=== PATIENT | female | born 1965 | race Caucasian/White ===

== ENCOUNTER 2020-03-07 05:55 | Observation (INO) ==
--- NOTE | 2020-02-22 11:43 | PAT Medication Instructions ---
Medication Instructions Date of Service February 22, 2020 Home Medications Potassium 99 mg PO QAM [Tylenol Arthritis Pain] 1,300 mg PO Q12H PRN cholecalciferol [Vitamin D3] 25 mcg PO QAM [Glucosamine Chondroitin] 1 cap PO QAM lisinopril 10 mg PO QAM multivitamin 1 tab PO QAM paroxetine HCl 25 mg PO QAM vitamin E 400 unit PO QAM STOP taking 2 weeks before surgery If surgery is within 2 weeks, stop taking as soon as possible. [Glucosamine Chondroitin] 1 cap PO QAM vitamin E 400 unit PO QAM DO NOT take the morning of surgery cholecalciferol [Vitamin D3] 25 mcg PO QAM lisinopril 10 mg PO QAM multivitamin 1 tab PO QAM Take morning of surgery With a small sip of water, OTHERWISE NOTHING TO EAT OR DRINK AFTER MIDNIGHT: [Tylenol Arthritis Pain] 1,300 mg PO Q12H PRN (if needed, may be taken up to four hours before surgery) paroxetine HCl 25 mg PO QAM Other Notes If you have any questions please call us at [phone] or [phone] or [phone] or [phone]
--- NOTE | 2020-02-23 11:06 | Anesthesiology Consultation ---
Date of Service February 23, 2020 Assessment & Plan (1) Encounter for pre-operative examination: COVID Status: As of 02/22 assessment, patient denies travel to endemic area, known exposure/sick contacts, or symptoms of COVID19. Patient instructed that they and their household members must follow strict social distancing guidelines, wear a mask in public and avoid travel for 14 days prior to surgery. Preoperative COVID19 testing to be completed prior to surgery per surgeon's arra ngements. Patient made aware to self-isolate as much as possible between COVID testing and surgery. *H/o PONV* HCG AM DOS Chart Review Chart Review: Acceptable Risk for Surgery and Patient seen in Pre Admission Testing Teaching & Discussion Instructed NPO after midnight before surgery, except medications with 15 cc of water. Medication instructions provided according to the PAT guidelines. History Surgery Operation Date: 03/07/20 11:55 Proposed Procedures p C6-C7 Anterior Cervical Discectomy Fusion - Paolo Barrios DO Height/Weight Height: 5 ft 6 in Weight: 89.5 kg Allergies Allergy/AdvReac Type Severity Reaction Status Date / Time adhesive AdvReac Unknown BLISTERS,SOME Verified 02/16/20 10:45 BANDAIDS celecoxib [From Celebrex] AdvReac Unknown FLUID Verified 02/16/20 10:44 RETENTION oxaprozin [From Daypro] AdvReac Unknown FLUID Verified 02/16/20 10:45 RETENTION Medications Home Medications Medication Instructions Recorded Confirmed Last Taken Potassium 99 mg PO QAM 02/16/20 02/16/20 Unknown acetaminophen [Tylenol Arthritis 1,300 mg PO Q12H PRN 02/16/20 02/16/20 Unknown Pain] cholecalciferol (vitamin D3) 25 mcg PO QAM 02/16/20 02/16/20 Unknown [Vitamin D3] glucos sul [id number]-Mn 1 cap PO QAM 02/16/20 02/16/20 Unknown [Glucosamine Chondroitin] lisinopril 10 mg PO QAM 02/16/20 02/16/20 Unknown multivitamin 1 tab PO QAM 02/16/20 02/16/20 Unknown paroxetine HCl 25 mg PO QAM 02/16/20 02/16/20 Unknown vitamin E 400 unit PO QAM 02/16/20 02/16/20 Unknown Lactobacillus acidophilus 1.5 mg PO QAM 02/23/20 02/23/20 Unknown [Probiotic Acidophilus] Past Medical History Medical History Anxiety Chronic back pain FROM NECK TO ARMS Hypertension Thyroiditis NO MEDS-F/U DR YECENIA CONSTANTINO [facility] Exercise / Class Metabolic Activity II 4-5 Yardwork/Stairs/Walk up hill Past Family History Family History Mother Family history of diabetes mellitus Past Surgical History Surgical History H/O foot surgery LEFT/RIGHT History of carpal tunnel release RIGHT History of colonoscopy History of oophorectomy LEFT-DERMOID History of surgery on arm RIGHT RADIAL TUNNEL History of surgery on arm RIGHT CUBITAL TUNNEL X 2 History of tonsillectomy Nausea and vomiting after administration of anesthetic agent Past Anesthesia History No Hx of Anesthesia Complications and No Family Hx of Anesthesia Complications History of PONV Adult History of PONV (18 and older): With most recent 2 cubital tunnel surgeries had no PONV, but did have with radial tunnel. No Hx of Motion Sickness and History of PONV STOP BANG Total 2 Social History Smoking Status: Never smoker Do You Dip or Chew Tobacco: No Hx Alcohol Use: Yes Alcohol type: wine alcohol intake frequency: a few times a month Hx Substance Use: No Review of Systems Pt denies any recent chest pain, shortness of breath, palpitations, cough, fever, URI, or uncontrolled acid reflux. Physical Exam Vital Signs BP: 122/81 P: 68bpm SPO2: 95% RA T: 98.4 F R: 12 ENMT Mouth: + dental restorations (R side rear molar upper and lower implants (2)); no chipped teeth and no loose teeth Thyromental Distance: > or= 3.5 Finger Breadths (3.5) Mallampati Class: I Neck normal visual inspection; neck extension not limited Respiratory normal respiratory effort Auscultation: lungs clear to auscultation bilaterally Cardiovascular Rate/Rhythm: regular rate and regular rhythm Heart Sounds: no murmur Extremities: no edema Testing Laboratory Results 02/23/20 11:14 02/23/20 11:14 PT 11.6 Seconds (9.0-12.0) 02/23/20 11:14 INR 1.1 (0.9-1.1) 02/23/20 11:14 APTT 26.7 Seconds (21.0-31.0) 02/23/20 11:14 Urine Color Yellow 02/23/20 11:14 Urine Appearance Clear (Clear) 02/23/20 11:14 Urine pH 8.0 (4.5-7.5) H 02/23/20 11:14 Ur Specific [place] 1.010 (1.000-1.030) 02/23/20 11:14 Urine Protein Negative (Negative) 02/23/20 11:14 Urine Glucose (UA) Negative (Negative) 02/23/20 11:14 Urine Ketones Negative (Negative) 02/23/20 11:14 Urine Nitrite Negative (Negative) 02/23/20 11:14 Ur Leukocyte Esterase 2+ (Negative) H 02/23/20 11:14 Urine WBC (Auto) 1-5 /hpf (0-5) 02/23/20 11:14 Urine RBC (Auto) 0-4 /hpf (0-4) 02/23/20 11:14 U Hyaline Cast (Auto) 1-5 /lpf (0-5) 02/23/20 11:14 U Epithel Cells (Auto) >30 /lpf (0-5) H 02/23/20 11:14 Urine Bacteria (Auto) 1+ (Negative) H 02/23/20 11:14 Blood Type A Negative 02/23/20 11:14 Antibody Screen NEGATIVE 02/23/20 11:14 Electrocardiogram Date: 02/23/20 Findings: + NSR @ (66bpm) *unconfirmed Chest X-Ray Date: 02/23/20 Findings: + NAD
--- NOTE | 2020-02-23 11:46 | XRay Report ---
XR chest Pre-admission PA/Lat CLINICAL HISTORY: Preoperative evaluation. COMPARISON STUDY: No previous studies for comparison. FINDINGS: Lung volumes are normal. Lungs are clear. There is no pneumothorax or pleural effusion. Car diac size is normal. Mediastinal contours are normal. There is no evidence for pulmonary edema. Incid ental note is made of cholecystectomy clips. IMPRESSION: No acute cardiopulmonary findings. ACT 112: Negative or not required by law. Electronically signed by: Adam Gottlieb M.D. 02/23/2020 11:44 AM
[2020-02-23 12:33] LABS: Basophils # (auto) 0.03 K/uL (0-0.2); Basophils % (auto) 0.8 %; Eosinophils # (auto) 0.09 K/uL (0-0.5); Eosinophils % (auto) 2.4 %; Hematocrit (blood only) 38.9 % (37-47); Hemoglobin 13.3 g/dL (12.0-16.0); Lymphocytes # (auto) 1.53 K/uL (1.2-3.4); Lymphocytes % (auto) 40.2 %; Mean Corpuscular Hgb Conc 34.2 g/dL (32-36); Mean Corpuscular Volume 87.8 fL (80-100); Mean Platelet Volume 9.5 fL (7.4-10.4); Monocytes # (auto) 0.38 K/uL (0.11-0.59); Neutrophils # (auto) 1.78 K/uL (1.4-6.5); Neutrophils % (auto) 46.6 %; Platelet Count 218 K/uL (130-400); RDW Coefficient of Variation 13.1 % (11.5-14.5); Red Blood Count 4.43 M/uL (4.2-5.4); White Blood Count 3.81 K/uL (4.8-10.8)
[2020-02-23 12:39] LABS: BUN Creatinine Ratio 16.2 (10-20); Calcium 9.4 mg/dl (8.5-10.1); Creatinine Clr Calc Pharmacy 100.4 ml/min; Potassium 4.2 mmol/L (3.5-5.1)
[2020-02-23 12:47] LABS: Appearance Urine Clear (Clear); Bacteria Urine Automated 1+ (Negative); Bilirubin Urine Negative (Negative); Blood Urine Negative (Negative); Color Urine Yellow; Epithelial Cell Urine Auto >30 /lpf (0-5); Glucose Urine UA Negative (Negative); Ketones Urine Negative (Negative); Leukocyte Esterase Urine 2+ (Negative); Nitrite Urine Negative (Negative); Protein Urine Negative (Negative); RBC Urine Automated 0-4 /hpf (0-4); Urobilinogen Urine Negative (Negative)
[2020-02-23 12:55] LABS: INR 1.1 (0.9-1.1); Partial Thromboplastin Time 26.7 Seconds (21.0-31.0); Prothrombin Time 11.6 Seconds (9.0-12.0)
--- NOTE | 2020-02-24 23:59 | Electrocardiogram Report ---
Test Reason : Blood Pressure : / mmHG Vent. Rate : 066 BPM Atrial Rate : 066 BPM P-R Int : 156 ms QRS Dur : 074 ms QT Int : 396 ms P-R-T Axes : 068 062 055 degrees QTc Int : 415 ms Normal sinus rhythm Normal ECG No previous ECGs available Confirmed by Bull Bonilla ([id number]) on 02/24/2020 11:59:03 PM Referred By: Paolo Barrios Confirmed By:Bull Bonilla
[2020-03-07] MEDS ORDERED: CeleBREX 200 MG CAP PO SCH (06:00)
[2020-03-07] MEDS ORDERED: LR 15ML/HR IV SCH (06:00)
[2020-03-07] MEDS ORDERED: GABAPENTIN 900 MG DOSE PO SCH (06:00)
[2020-03-07] MEDS ORDERED: CEFAZOLIN 2000MG 2,000 MG/15 ML SYR IV SCH (06:00)
[2020-03-07] MEDS ORDERED: ACETAMINOPHEN 500 MG TAB PO SCH (06:00)
[2020-03-07] MEDS ORDERED: PROPOFOL IV EMULSION 10 MG/ML 100 ML VIAL IV ONE (06:38)
[2020-03-07] MEDS ORDERED: LARYING-O-JET KIT (LTA) ONE ×2 (06:47→11:42)
[2020-03-07] MEDS ORDERED: fentaNYL citrate 100 MCG/2 ML VIAL ONE ×2 (06:55→08:19)
[2020-03-07] MEDS ORDERED: ROCURONIUM BROMIDE 10 MG/ML 5 ML VIAL IV ONE (06:55)
[2020-03-07] MEDS ORDERED: DEXAMETHASONE SOD INJ 4 MG/ML VIAL ONE ×2 (06:55→10:43)
[2020-03-07] MEDS ORDERED: SUCCINYLCHOLINE CHLORIDE 20 MG/ML 10 ML VIAL IV ONE (06:55)
[2020-03-07] MEDS ORDERED: MIDAZOLAM HCL 1 MG/ML 2ML VIAL ONE (06:55)
[2020-03-07] MEDS ORDERED: ONDANSETRON INJ 2 MG/ML 2 ML VIAL ONE (06:55)
[2020-03-07] MEDS ORDERED: LIDOCAINE 2% JELLY 5 ML TUBE ONE (07:03)
[2020-03-07] MEDS ORDERED: BACITRACIN INJ 50,000 UNIT VIAL ONE (07:03)
[2020-03-07] MEDS ORDERED: ONDANSETRON INJ 2 MG/ML 2 ML VIAL IV PRN ×2 (07:24→10:51)
[2020-03-07] MEDS ORDERED: ATROPINE SULFATE 0.1 MG/ML 10ML SYR IV PRN (07:24)
[2020-03-07] MEDS ORDERED: ePHEDrine sulfate 50 MG/ML AMP IV PRN (07:24)
[2020-03-07] MEDS ORDERED: PROMETHAZINE HCL 6.25 MG in SODIUM CHLORIDE 0.9% 50 ML IV PRN (07:24)
--- NOTE | 2020-03-07 07:34 | History & Physical Bridge Note ---
Date of Service March 07, 2020 History & Physical Bridge Note I have examined the patient, reviewed the History & Physical and in the interval since the performance of the History & Physical I have noted the following changes of clinical significance: no changes noted
--- NOTE | 2020-03-07 07:35 | History & Physical Report ---
Date of Service March 07, 2020 Assessment & Plan (1) Cervical stenosis of spinal canal: Admission and Anticipated Discharge Date Admission Date: C6-C7 anterior cervical discectomy fusion History of Present Illness Chief Complaint: Neck and arm pain Primary Care Provider: Cuca Mauro This is a 54-year-old female presents with chronic persistent neck and arm pain peer after failing a course of nonoperative care is here for surgical invention. Allergies Allergy/AdvReac Type Severity Reaction Status Date / Time adhesive AdvReac Unknown BLISTERS,SOME Verified 03/07/20 06:24 BANDAIDS celecoxib [From Celebrex] AdvReac Unknown FLUID Verified 03/07/20 06:24 RETENTION oxaprozin [From Daypro] AdvReac Unknown FLUID Verified 03/07/20 06:24 RETENTION Home Medications Home Medications Medication Instructions Recorded Confirmed Type Potassium 99 mg PO QAM 02/16/20 03/07/20 History acetaminophen [Tylenol Arthritis 1,300 mg PO Q12H PRN 02/16/20 03/07/20 History Pain] cholecalciferol (vitamin D3) 25 mcg PO QAM 02/16/20 03/07/20 History [Vitamin D3] glucos sul [id number]-C-Mn 1 cap PO QAM 02/16/20 03/07/20 History [Glucosamine Chondroitin] lisinopril 10 mg PO QAM 02/16/20 03/07/20 History multivitamin 1 tab PO QAM 02/16/20 03/07/20 History paroxetine HCl 25 mg PO QAM 02/16/20 03/07/20 History vitamin E 400 unit PO QAM 02/16/20 03/07/20 History Lactobacillus acidophilus 1.5 mg PO QAM 02/23/20 03/07/20 History [Probiotic Acidophilus] Past Med/Surg History Medical History Anxiety Chronic back pain FROM NECK TO ARMS Hypertension Thyroiditis NO MEDS-F/U DR YECENIA [facility] Surgical History H/O foot surgery LEFT/RIGHT History of carpal tunnel release RIGHT History of colonoscopy History of oophorectomy LEFT-DERMOID History of surgery on arm RIGHT RADIAL TUNNEL History of surgery on arm RIGHT CUBITAL TUNNEL X 2 History of tonsillectomy Nausea and vomiting after administration of anesthetic agent Family History Mother Family history of diabetes mellitus Social History Smoking Status: Never smoker Second Hand Exposure: No; Do You Dip or Chew Tobacco: No; Hx Alcohol Use: Yes Alcohol type: wine Hx Substance Use: No Preferred Language: Syrian Communication Ability: Effective Digital Camera Technician Required: No Beliefs That Will Affect Care: None Current Living Situation: Parent Other Information That Helps Us Care for You: No Safety Concerns: Feels Safe At This Time Physical Exam Physical Exam: Patient alert and oriented neurologically intact. Heart regular rate and rhythm. Lungs clear to auscultation. Results & Data ([facility]) Vital Signs (Past 12 Hours) Vital Signs Temp Pulse Resp BP Pulse Ox 03/07/20 06:29 36.9 C 79 16 142/83 H 99
[2020-03-07] MEDS ORDERED: FLOSEAL HEMOSTATIC MATRIX 10ML TOP ONE (08:59)
--- NOTE | 2020-03-07 09:11 | Operative Report ---
Post Operative Report Pre & Post Diagnosis Operation Date: 03/07/20 07:45 Pre-Op Diagnosis: Spinal Stenosis, Cervical Region C6-C7 Post-Op Diagnosis: Spinal Stenosis, Cervical Region C6-C7 I identified the patient and participated in the time-out.: Yes Procedure Operation Date: 03/07/20 07:45 Actual Procedures 1 anterior cervical discectomy with bilateral foraminotomies C6-C7. #2 anterior cervical arthrodesis C6-C7. #3 placement of 8 mm spiral cage filled with DBM at C6-C7. #4 application of 5 complete screws across C6-C7. Surgeon Paolo Barrios, Linen Checker Margaret Herndon Estimated Blood Loss 10 Findings Consistent with Post-Op Diagnosis Specimens None Indications This is a 54-year-old female known to me that failed extensive course of nonoperative care is here for surgical invention. Description of Procedure Patient was met with identified informed consent obtained. Patient was then taken to the operative suite underwent an patient placed in supine position Jared table head Deluna head batcher. All bony prominences well-padded eyes inspected to ensure no external pressure placed upon the. This point the anterior cervical spine was prepped and draped in a sterile fashion. The assistance of fluoroscopy identified the see 6 C7 disc base. A transverse incision was then placed on the right anterior aspect of the cervical spine overlying this region. Sharp dissection with assistance of bipolar electrocautery was performed down to and exposing the anterior cervical spine. I verified my position with fluoroscopy. A complete discectomy of C6-7 was then performed up to the uncovertebral joints bilaterally. [place] distracting pins utilized. Removed all posterior annular fibers and longitudinal ligament and pulled performed bilateral foraminotomies. Endplates were then burred to subcortical bleeding bone and 8 mm spiral cage filled with DBM tapped in position. Distracting apparatus was removed and a 5 complete and screws applied with the assistance of fluoroscopy. The incision was then copiously irrigated explored to ensure no damage to surrounding structures remaining bleeding. 10 round DEONTE drain inserted. The incision was then closed with 2 Vicryl in the fascia and 4 Monocryl for final skin closure. Steri-Strip sterile dressings placed. Patient waken taken PACU stable addition. Please note spinal cord monitoring was utilized that the procedure no changes noted. Lastly Margaret Herndon was present at the entire procedure involved in patient positioning complex portions of the surgery and final skin closure. I attest to the content of the Intraoperative Record and any orders documented therein. Any exceptions are noted below.
--- NOTE | 2020-03-07 09:40 | Fluoroscopy Report ---
FL lumbar spine 2-3V CLINICAL HISTORY: ACDF C6-C7 COMPARISON STUDY: None. FLUOROSCOPY TIME: 27 seconds. FINDINGS: 4 fluoroscopic spot images of the cervical spine demonstrate anterior cervical discectomy a nd fusion at C6-C7. The hardware is intact. IMPRESSION: Fluoroscopy provided for C6-C7 ACDF. ACT 112: Negative or not required by law. Electronically signed by: Eder Huber M.D. 03/07/2020 9:38 AM
[2020-03-07] MEDS: fentaNYL citrate 100 MCG/2 ML VIAL IV PRN ×2 (09:51→10:00)
--- NOTE | 2020-03-07 10:37 | Anesthesiology Progress Note ---
Date of Service March 07, 2020 Anesthesia Post Procedure Vital Signs Vital Signs: Temp Pulse Pulse Resp BP BP Pulse Ox 03/07/20 10:30 36.5 C 78 15 119/77 98 03/07/20 10:20 79 12 123/74 99 03/07/20 10:10 81 12 131/71 100 03/07/20 10:00 84 13 115/78 100 03/07/20 09:50 66 12 114/73 100 03/07/20 09:40 67 12 123/65 100 03/07/20 09:30 36.1 C L 78 13 120/74 100 03/07/20 06:29 36.9 C 79 16 142/83 H 99 Pain Intensity Anterior Neck: Pain Intensity: 3 Transfer of Care Handoff Completed per policy Notes Mental Status: alert / awake / arousable Patient Amnestic to Procedure: Yes Nausea / Vomiting: adequately controlled Pain: adequately controlled Airway Patency, RR, SpO2: stable & adequate BP & HR: stable & adequate Hydration State: stable & adequate Anesthetic Complications: no major complications apparent
[2020-03-07] MEDS ORDERED: PHENYLEPHRINE 100MCG/ML 5ML SYR ONE (10:43)
[2020-03-07] MEDS ORDERED: ePHEDrine sulfate 50 MG/ML SYR ONE (10:43)
[2020-03-07] MEDS ORDERED: GLYCOPYRROLATE 0.2 MG/ML VIAL ONE (10:43)
[2020-03-07] MEDS ORDERED: NEOSTIGMINE METHYLSULFATE 1 MG/ML 10ML VIAL ONE (10:43)
[2020-03-07] MEDS ORDERED: SOD PHOSPHATE/SOD BIPHOSPHATE ENEMA 132 ML BTL PR PRN (10:51)
[2020-03-07] MEDS ORDERED: ACETAMINOPHEN 1,000 MG/100 ML VIAL IV PRN (10:51)
[2020-03-07] MEDS ORDERED: NALOXONE HCL 0.4 MG/1 ML VIAL/CARP IV PRN (10:51)
[2020-03-07] MEDS ORDERED: HYDROmorphone INJ 0.5 MG/0.5 ML SYR IV PRN (10:51)
[2020-03-07] MEDS ORDERED: HYDROmorphone INJ 1 MG/ML SYRINGE IV PRN (10:51)
[2020-03-07] MEDS ORDERED: METOCLOPRAMIDE HCL INJ 5 MG/ML 2 ML VIAL IV PRN (10:51)
[2020-03-07] MEDS ORDERED: RACEPINEPHRINE 2.25% NEBU SOLN 0.5 ML VIAL INH PRN (10:51)
[2020-03-07] MEDS ORDERED: DO NOT ADMINISTER PNEUMOCOCCAL VACCINE PRN (10:51)
[2020-03-07] MEDS ORDERED: FAMOTIDINE 20 MG TAB PO PRN (10:51)
[2020-03-07] MEDS ORDERED: ALUMINUM/MAGNESIUM SUSP 30 ML UDC PO PRN (10:51)
[2020-03-07] MEDS ORDERED: DEXAMETHASONE SOD PHOSPHATE 8 MG in SYRINGE 0 ML IV PRN (10:51)
[2020-03-07] MEDS ORDERED: TRAMADOL HCL 50 MG TABLET PO PRN (10:51)
[2020-03-07] MEDS ORDERED: DO NOT ADMINISTER FLU VACCINE PRN (10:51)
[2020-03-07] MEDS ORDERED: MAGNESIUM HYDROXIDE SUSP 30 ML UDC PO PRN (10:51)
[2020-03-07] MEDS ORDERED: ONDANSETRON 4 MG OD TAB PO PRN (10:51)
[2020-03-07] MEDS ORDERED: LORazepam 0.5 MG/1 ML VIAL IV PRN (10:51)
[2020-03-07] MEDS ORDERED: OXYCODONE HCL IR 5 MG TAB (IMMEDIATE RELEASE) PO PRN (10:51)
[2020-03-07] MEDS ORDERED: PROMETHAZINE HCL 12.5 MG in SODIUM CHLORIDE 0.9% 50 ML IV PRN (10:51)
[2020-03-07] MEDS ORDERED: LORazepam 0.5 MG TAB PO PRN (10:51)
[2020-03-07] MEDS: LACTATED RINGER'S 1,000 ML IV SCH ×2 (11:14→20:26)
[2020-03-07] MEDS: POLYETHYLENE (MIRALAX) 17 GM PACK PO SCH ×3 (13:00→23:37)
[2020-03-07] MEDS: CLINDAMYCIN 600 MG in DEXTROSE 5% 50 ML IV SCH ×2 (15:42→23:37)
[2020-03-07] MEDS: ACETAMINOPHEN 500 MG TAB PO PRN (20:26)
[2020-03-07] MEDS ORDERED: DOCUSATE SODIUM/SENNA 50/8.6MG TAB PO SCH (21:00)
[2020-03-08] MEDS: POLYETHYLENE (MIRALAX) 17 GM PACK PO SCH ×2 (05:51→12:07)
[2020-03-08] MEDS: ACETAMINOPHEN 500 MG TAB PO PRN (08:04)
[2020-03-08] MEDS ORDERED: lisinopriL 10 MG TAB PO SCH (09:00)
[2020-03-08] MEDS ORDERED: LACTOBACILLUS ACIDOPHILUS (FLORANEX) TAB PO SCH (09:00)
[2020-03-08] MEDS ORDERED: PAROXETINE 25 MG PO SCH (09:00)
[2020-03-08] MEDS ORDERED: NON-FORMULARY MEDICATION (Potassium 99 MG) PO SCH (09:00)
--- NOTE | 2020-03-08 12:10 | Discharge Summary ---
Date of Service March 08, 2020 Admission HPI Per Admitting Provider This is a 54-year-old female presents with chronic persistent neck and arm pain peer after failing a course of nonoperative care is here for surgical invention. Principal Diagnosis Cervical spinal stenosis with radiculopathy Discharge Data Allergies Allergy/AdvReac Type Severity Reaction Status Date / Time adhesive AdvReac Unknown BLISTERS,SOME Verified 03/07/20 06:24 BANDAIDS celecoxib [From Celebrex] AdvReac Unknown FLUID Verified 03/07/20 06:24 RETENTION oxaprozin [From Daypro] AdvReac Unknown FLUID Verified 03/07/20 06:24 RETENTION Procedures Performed Operation Date: 03/07/20 07:45 Actual Procedures p C6-C7 Anterior Cervical Discectomy and Fusion(Not Applicable) - Paolo Barrios DO Ordered Studies 03/07/20 07:45 FL fluoroscopy <1hr Routine FL lumbar spine 2-3V Routine Hospital Course (1) Cervical stenosis of spinal canal: Patient underwent anterior cervical discectomy and fusion tolerated this well was taken to orthopedic for postoperative. Postop day 1 she was swallowing well no hoarseness. Arm symptoms improved. Extra strength testing. DEONTE drain decreasing appropriately. Subsequent discharge home. Discharge orders instructions from the chart for further review. Total Time Total Time Spent Total Time Spent (In Minutes): 20 minutes Discharge Plan Discharge Items Patient Disposition: Home - Self-Care Reason For Visit: Spinal Stenosis, Cervical Region Discharge Diagnosis: Cervical spinal stenosis with radiculopathy Activity: As commented below Non-emergency contact: Primary Care Provider Call non-emergency contact if: you have any medication questions Follow-up/Referrals: Cuca Mauro D.O. [Primary Care Provider] - Diet: Regular Addtl Attending Provider Instructions: ACTIVITY RECOMMENDATIONS: SELF CARE INSTRUCTIONS AFTER CERVICAL FUSIONS 1. No smoking. Smoking drastically decreases the chance of a solid fusion. 2. No bending, lifting more than 5 pounds, or twisting (roll like a log when turning in bed). 3. You may shower 3 days after surgery. Thoroughly dry wound. Do not soak in the tub. 4. Cervical collar: Must be worn at all times including sleeping. You may remove the brace only to bath, eat and if you are sitting in a recliner. 5. Please walk as much as you can for exercise. Gradually increase the distance that you walk as your endurance increases. SPECIAL CARE INSTRUCTIONS: VERY IMPORTANT TO READ AND REVIEW A. Do not take any anti-inflammatory medications (i.e. Indocin, Advil, Aspirin, Naprosyn, Aleve, Motrin, etc.) as these may inhibit the chance of a solid fusion. Tylenol is okay to take. B. Your surgical incision has been closed with a cosmetic suture under the skin that will dissolve in about 6 weeks. In 14 days, you can use a pair of clean scissors and cut the suture that is left outside of the skin at the ends of your incision. C. Complications are uncommon, but please contact us if you have any signs or symptoms of: 1. wound infection (fever higher than 102.5 degrees F, redness, separation of wound, drainage, or increasing pain from the incision) 2. blood clots in legs (pain, swelling, redness and warmth in legs) 3. urinary tract infection (fever higher than 102.5 degrees, burning upon urination or increased frequency of urination) 4. nerve problems (inability to walk on your toes or heels, numbness, loss of bowel or bladder control) 5. any other symptoms that concern you. D. Please call the office at if you have any concerns or questions about your operation or recovery. MANAGING PAIN AFTER SPINAL SURGERY 1. Narcotic medication is intended for short-term use and will be provided for surgical pain. Surgical pain usually lasts for a period of 4-6 weeks. Narcotic medication includes Percocet, Vicodin, Darvocet, Tylenol #3 or Lortab. 2. Longer-term pain is more appropriately treated with non-narcotic medication such as Tylenol ES. 3. Muscle spasm is not appropriately treated with narcotics. Muscle relaxers such as Soma, Flexeril or Skelaxin can be used along with Tylenol ES. 4. Remember that we all live with some "aches and pains". This is not unusual or uncommon after an injury or as we get older. 5. We will provide appropriate medication within the normal guidelines of their prescribed use. We will also be very cautious and aware of potential abuse and extended duration of patients' medication needs. 6. Please allow 2-3 days to process refills. Prescriptions will not be mailed but must be picked up at the office. FOLLOW UP VISIT: Keep your scheduled follow-up appointment. Any questions, please call the office at . Pending Studies at Discharge: No Stand-Alone Forms: [facility], Opioid Pain Management, Smoking Cessation Medications and DC Order Prescriptions: New tramadol 50 mg tablet 50 mg PO Q6H PRN (Reason: pain, moderate) Qty: 15 RF: 0 oxycodone 5 mg tablet 5 mg PO Q6H PRN (Reason: pain, severe) Qty: 15 RF: 0 Continued lisinopril 10 mg Tablet 10 mg PO QAM RF: 0 paroxetine HCl 25 mg Tablet Extended Release 24 Hr 25 mg PO QAM RF: 0 multivitamin Tablet 1 tab PO QAM RF: 0 acetaminophen [Tylenol Arthritis Pain] 650 mg Tablet Extended Release 1,300 mg PO Q12H PRN (Reason: Pain) RF: 0 vitamin E 400 unit Capsule 400 unit PO QAM RF: 0 cholecalciferol (vitamin D3) [Vitamin D3] 25 mcg (1,000 unit) Capsule 25 mcg PO QAM RF: 0 Glucosamine Chondroitin 550-30-1 mg Capsule 1 cap PO QAM RF: 0 Potassium 99 mg PO QAM RF: 0 Probiotic Acidophilus 1.5 mg (250 million cell) Capsule 1.5 mg PO QAM RF: 0 Discharge Orders: Discharge Order (Routine); Ordered 03/08/20 Ordered By: Paolo Martin/Other Patient Handouts: Preventing Deep Vein Thrombosis, Discharge Instructions for Cervical Disk Surgery, Discharge Instructions for Cervical Fusion Admission Data Admit Date/Time: 03/07/20 09:45 Attending Provider: Paolo Barrios Admit Provider: Paolo Barrios Primary Care Provider: Cuca Mauro Other Interventions: Discharge Summary Assessment (RN) Last Done: 03/08/20 11:11
[2020-03-09] MEDS ORDERED: bisacodyL 10 MG SUPP PR PRN (09:15)
== END 2020-03-08 13:25 | disposition home or self-care (01) ==
LOC: ASU 05:55 → 3E 05:55